=== PATIENT | female | born 1960 | race Caucasian/White ===

== ENCOUNTER 2018-10-12 23:20 | Emergency (ER) | payer SELFPAY ==
[~2018-10-12] VITALS: Ht 170.2 cm; Wt 81.6 kg
[2018-10-12 23:31] VITALS: Ht 170.2 cm; Wt 81.6 kg
[2018-10-13 01:42] VITALS: BP 117/77
== END 2018-10-13 01:42 | disposition home or self-care (01) ==
LOC: ED 23:20
DX: S06.0X0A Concussion without loss of consciousness, initial encounter (principal); S05.12XA Contusion of eyeball and orbital tissues, left eye, initial encounter; W50.0XXA Accidental hit or strike by another person, initial encounter; Y93.89 Activity, other specified; Y92.89 Other specified places as the place of occurrence of the external cause; Y99.8 Other external cause status
CPT/HCPCS: Q0162